=== PATIENT | female | born 1975 | race Asian ===

== ENCOUNTER 2016-08-25 10:10 | Outpatient (CLI) | payer OTHER ==
[~2016-08-25 10:10] MED LIST: AMLO2.5T PO; CELEXA20 MG PO; CLON0.5T36 PO; MOBIC15 MG PO; RISP2TAB2 PO; SERT100T PO; TEMA15CA19 PO; TENORETIC50 MG PO; TOPAMAX25 MG PO; TRAZ100T PO; ZANTAC 75 PO
== END 2016-08-25 19:40 | disposition home or self-care (01) ==
LOC: RAD 10:10
DX: M54.5 Low back pain (principal)

== ENCOUNTER 2017-01-28 12:14 | Observation (INO) | payer OTHER ==
[~2017-01-28] VITALS: Ht 175.3 cm; Wt 130.4 kg
[2017-01-28 13:23] LABS: PLATELET COUNT 220 K/uL (152-353)
[2017-01-28 13:34] LABS: PARTIAL THROMBOPLASTIN TIME 22.7 SECONDS (24.5-33.6)
[2017-01-28 13:40] LABS: SODIUM 138 mmol/L (136-145)
[2017-01-28 15:32] VITALS: BP 127/81; TEMP 98.8; Ht 175.3 cm; Wt 130.4 kg
[2017-01-28 16:00] VITALS: BP 93/53; TEMP 98.8
[2017-01-28 20:00] VITALS: BP 107/77; TEMP 98.8
[2017-01-29] VITALS: BP 105/63; TEMP 98.2
[2017-01-29 04:00] VITALS: BP 110/64; TEMP 97.8
[2017-01-29 04:54] LABS: PLATELET COUNT 200 K/uL (152-353)
[2017-01-29 05:10] LABS: POTASSIUM 3.2 mmol/L (3.6-5.2)
[2017-01-29 08:00] VITALS: BP 106/69; TEMP 98
[2017-01-29 12:00] VITALS: BP 97/65; TEMP 98.2
== END 2017-01-29 17:45 | disposition home or self-care (01) ==
LOC: MED/SURG 12:14
PROVIDERS: ADMIT Family Medicine
DX: R07.89 Other chest pain (principal); R51 Headache; R53.83 Other fatigue
CPT/HCPCS: 36415; 80053; 82550; 83735; 84484; 85027; 85610; 85730; 93005; 96372; 99220; G0378; G0379; J1650; J1885; J2920; J3475

== ENCOUNTER 2017-04-03 15:02 | Emergency (ER) | payer OTHER | END 2017-04-03 15:12 | disposition home or self-care (01) | LOC: ED 15:02 | DX: K13.79 Other lesions of oral mucosa (principal) ==

== ENCOUNTER 2017-08-18 10:42 | Outpatient (CLI) | payer OTHER | END 2017-08-18 21:40 | disposition home or self-care (01) | LOC: CT 10:42 | DX: G51.0 Bell's palsy (principal) ==

== ENCOUNTER 2018-01-10 12:57 | Emergency (ER) | payer OTHER ==
[~2018-01-10] VITALS: Ht 175.3 cm; Wt 131.5 kg
[2018-01-10 13:10] VITALS: TEMP 98.8
[2018-01-10 14:43] LABS: PLATELET COUNT 478 K/uL (152-353)
[2018-01-10 17:59] VITALS: BP 132/74
== END 2018-01-10 17:59 | disposition home or self-care (01) ==
LOC: ED 12:57
PROVIDERS: Family Medicine
DX: J01.80 Other acute sinusitis (principal); J06.9 Acute upper respiratory infection, unspecified
CPT/HCPCS: 36415; 80053; 81000; 85027; 99283

== ENCOUNTER 2018-04-06 11:46 | Emergency (ER) | payer OTHER ==
[~2018-04-06] VITALS: Ht 175.3 cm; Wt 131.5 kg
[2018-04-06 11:50] VITALS: TEMP 99.3
[2018-04-06 13:50] VITALS: BP 106/61
== END 2018-04-06 13:57 | disposition home or self-care (01) ==
LOC: ED 11:46
DX: T88.59XA Other complications of anesthesia, initial encounter (principal); G44.40 Drug-induced headache, not elsewhere classified, not intractable; Y84.8 Other medical procedures as the cause of abnormal reaction of the patient, or of later complication, without mention of misadventure at the time of the procedure
CPT/HCPCS: 36415; 96360; 96372; 99284; J2175; J2405

== ENCOUNTER 2018-06-29 11:26 | Observation (INO) | payer OTHER ==
[~2018-06-29] VITALS: Ht 175.3 cm; Wt 141.3 kg
[2018-06-29 12:41] LABS: PLATELET COUNT 414 K/uL (152-353)
[2018-06-29 13:11] LABS: PARTIAL THROMBOPLASTIN TIME 23.7 SECONDS (24.5-33.6)
[2018-06-29] MEDS ORDERED: TENORETIC50 MG PO (14:42)
[2018-06-29] MEDS ORDERED: BUPAP 50-300 MG1 TAB PO (14:43)
[2018-06-29] MEDS ORDERED: CYCL10TA35 PO (14:44)
[2018-06-29 14:45] VITALS: BP 122/78; TEMP 98.7; Ht 175.3 cm; Wt 141.3 kg
[2018-06-29] MEDS ORDERED: TIZANIDINE HYDRO4 MG PO (14:45)
[2018-06-29 16:27] VITALS: BP 109/64; TEMP 98.8
[2018-06-29 20:00] VITALS: BP 122/67; TEMP 98.5
[2018-06-30 00:12] VITALS: BP 94/57; TEMP 99
[2018-06-30 04:00] VITALS: BP 101/62; TEMP 98.9
[2018-06-30 04:21] LABS: PLATELET COUNT 361 K/uL (152-353)
[2018-06-30 04:50] LABS: POTASSIUM 3.2 mmol/L (3.6-5.2)
[2018-06-30 08:00] VITALS: BP 122/72; TEMP 98.7
[2018-06-30 12:00] VITALS: BP 103/59; TEMP 98.5
[2018-06-30 16:03] VITALS: BP 73/53; TEMP 98.3
[2018-06-30 20:08] VITALS: BP 115/70; TEMP 98.2
[2018-07-01 00:28] VITALS: BP 99/63; TEMP 97.7
[2018-07-01 04:03] VITALS: BP 103/65; TEMP 97.8
[2018-07-01 05:24] LABS: PLATELET COUNT 318 K/uL (152-353)
[2018-07-01 08:00] VITALS: BP 99/58; TEMP 98.1
[2018-07-01 12:00] VITALS: BP 104/61; TEMP 98.6
== END 2018-07-01 16:00 | disposition home or self-care (01) ==
LOC: MED/SURG 11:26
PROVIDERS: ADMIT Family Medicine
DX: R07.89 Other chest pain (principal); K11.20 Sialoadenitis, unspecified
CPT/HCPCS: 36415; 80053; 82550; 82553; 83735; 84100; 84484; 85027; 85610; 85730; 93005; 96365; 96366; 99220; G0378; G0379; J3475

== ENCOUNTER 2020-07-21 17:39 | Emergency (ER) | payer OTHER ==
[~2020-07-21] VITALS: Ht 175.3 cm; Wt 131.5 kg
[~2020-07-21 17:39] MED LIST changes: +BUPAP 50-300 MG1 TAB PO; +CYCL10TA35 PO; +TIZANIDINE HYDRO4 MG PO
[2020-07-21 18:03] VITALS: TEMP 97.6
[2020-07-21 18:27] LABS: PLATELET COUNT 349 K/uL (152-353)
[2020-07-21 18:38] LABS: POTASSIUM 2.9 mmol/L (3.6-5.2)
[2020-07-21 20:18] VITALS: BP 107/68
== END 2020-07-21 20:18 | disposition home or self-care (01) ==
LOC: ED 17:39
PROVIDERS: Hospitalist
DX: R10.84 Generalized abdominal pain (principal); M51.37 Other intervertebral disc degeneration, lumbosacral region; N30.80 Other cystitis without hematuria
CPT/HCPCS: 36415; 80053; 81000; 82150; 83690; 85027; 96360; 96365; 96366; 96375; 99284; J1170; J1885; J1956; J2405

== ENCOUNTER 2021-02-18 08:30 | Outpatient (CLI) | payer OTHER ==
[~2021-02-18] VITALS: Ht 170.2 cm; Wt 128.8 kg
== END 2021-02-18 19:28 | disposition home or self-care (01) ==
LOC: INF 08:30
PROVIDERS: ATTEND Family Medicine
DX: Z23 Encounter for immunization (principal); U07.1 COVID-19
CPT/HCPCS: 96365; M0244

== ENCOUNTER 2021-04-05 10:24 | Outpatient (CLI) | payer OTHER | END 2021-04-05 18:58 | disposition home or self-care (01) | LOC: RAD 10:24 | PROVIDERS: ATTEND Family Medicine | DX: R52 Pain, unspecified (principal); W19.XXXS Unspecified fall, sequela ==

== ENCOUNTER 2022-01-29 12:15 | Outpatient (CLI) | payer OTHER ==
[2022-01-29 12:33] LABS: PLATELET COUNT 369 K/uL (152-353)
[2022-01-29 12:47] LABS: POTASSIUM 3.4 mmol/L (3.6-5.2)
== END 2022-01-29 19:27 | disposition home or self-care (01) ==
LOC: LABW 12:15
PROVIDERS: ATTEND Nurse Practitioner Family
DX: R07.89 Other chest pain (principal); K21.9 Gastro-esophageal reflux disease without esophagitis
CPT/HCPCS: 36415; 80053; 82150; 82550; 82553; 83690; 84484; 85027; 93005

== ENCOUNTER 2022-06-13 13:47 | Emergency (ER) | payer OTHER ==
[~2022-06-13] VITALS: Ht 175.3 cm; Wt 125.2 kg
[2022-06-13 14:19] VITALS: BP 140/90; TEMP 97.9
== END 2022-06-13 15:25 | disposition home or self-care (01) ==
LOC: ED 13:47
DX: T14.8XXA Other injury of unspecified body region, initial encounter (principal); M62.830 Muscle spasm of back; V53.5XXA Driver of pick-up truck or van injured in collision with car, pick-up truck or van in traffic accident, initial encounter; Y92.488 Other paved roadways as the place of occurrence of the external cause
CPT/HCPCS: 99283

== ENCOUNTER 2022-06-28 10:41 | Outpatient (CLI) | payer OTHER | END 2022-06-28 18:53 | disposition home or self-care (01) | LOC: RAD 10:41 | PROVIDERS: ATTEND Nurse Practitioner Primary Care | DX: M54.6 Pain in thoracic spine (principal); M25.551 Pain in right hip ==

== ENCOUNTER 2023-03-25 15:21 | Outpatient (CLI) | payer OTHER | END 2023-03-25 19:28 | disposition home or self-care (01) | LOC: RAD 15:21 | PROVIDERS: ATTEND Orthopaedic Surgery | DX: M47.896 Other spondylosis, lumbar region (principal) ==